=== PATIENT | female | born 1985 | race Caucasian/White ===

== ENCOUNTER 2016-09-22 20:39 | Outpatient (CLI) | payer SELFPAY ==
[~2016-09-22] VITALS: Ht 175.3 cm; Wt 89.5 kg
[2016-09-22 20:52] VITALS: Ht 175.3 cm; Wt 89.5 kg
[2016-09-22 20:54] VITALS: BP 127/79; PULSE 78; RESP 18
[2016-09-22] MEDS ORDERED: PREN1TAB62 PO (21:01)
--- NOTE | 2016-09-22 21:56 | RADRPT ---
PROCEDURE: Obstetrical ultrasound. CLINICAL INDICATION: , evaluation. Pelvic pain. TECHNIQUE: Transabdominal sonographic images of the pelvis are obtained for evaluation of we ight. This examination is not a complete anatomic survey. COMPARISON: No prior studies are available for comparison. FINDINGS: Single intrauterine gestation. There is a variable presentation. Measurements were made in order to determine age. The results are as follows: BPD = 4.34 cm HC = 15.75 cm AC = 15.09 cm FL = 2.68 cm Deepest a vertical pocket 4.5 cm. Heart rate = 154 beats per minute The placenta is anterior. There is no evidence for an abruption or placenta previa. Ovaries are not visualized. IMPRESSION: Single intrauterine gestation of approximately 19 weeks 0 days by ultrasound criteria. Estimated weight = 281 g; 77 percentile for estimated ultrasound age. No evidence of placental abruption. RPTAT: AADD .Chau Weston MD, MD Date Time Electronically viewed and signed by .Chau Weston MD, on 09/22/2016 21:56 .B/
[2016-09-22 22:22] LABS: ADD UMIC NO; URINE BILIRUBIN (Dip) NEGATIVE (NEGATIVE); URINE BLOOD (Dip) NEGATIVE (NEGATIVE); URINE COLOR LT. YELLOW (YELLOW); URINE GLUCOSE (Dip) NEGATIVE (NEGATIVE); URINE KETONES (Dip) NEGATIVE (NEGATIVE); URINE LEUKOCYTE ESTERASE (Dip) NEGATIVE (NEGATIVE); URINE NITRITE (Dip) NEGATIVE (NEGATIVE); URINE TOTAL PROTEIN (Dip) NEGATIVE (NEGATIVE); URINE UROBILINOGEN (Dip) 0.2 E.U./dL (0.1-1.0)
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
== END 2016-09-22 23:10 | disposition home or self-care (01) ==
LOC: OBT 20:39 → L-D 20:39 → OBT 23:10
PROVIDERS: ATTEND Obstetrics & Gynecology Obstetrics
DX: O9A.212 Injury, poisoning and certain other consequences of external causes complicating pregnancy, second trimester (principal); R10.2 Pelvic and perineal pain; V43.52XA Car driver injured in collision with other type car in traffic accident, initial encounter; Y92.410 Unspecified street and highway as the place of occurrence of the external cause; Z3A.19 19 weeks gestation of pregnancy
CPT/HCPCS: 76815; 81003; G0463

== ENCOUNTER 2016-09-22 23:24 | Emergency (ER) | payer SELFPAY ==
[~2016-09-22] VITALS: Ht 175.3 cm; Wt 80.0 kg
[~2016-09-22 23:24] MED LIST: PREN1TAB62 PO
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
[2016-09-22 23:40] VITALS: Ht 175.3 cm; Wt 80.0 kg
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
== END 2016-09-22 23:46 | disposition home or self-care (01) ==
LOC: E/R 23:24
DX: O9A.212 Injury, poisoning and certain other consequences of external causes complicating pregnancy, second trimester (principal); S49.92XA Unspecified injury of left shoulder and upper arm, initial encounter; S49.91XA Unspecified injury of right shoulder and upper arm, initial encounter; M79.1 Myalgia; V43.92XA Unspecified car occupant injured in collision with other type car in traffic accident, initial encounter; Y92.410 Unspecified street and highway as the place of occurrence of the external cause; Z3A.19 19 weeks gestation of pregnancy
CPT/HCPCS: 99282